=== PATIENT | male | born 1955 | race Caucasian/White ===

== ENCOUNTER 2018-04-21 07:52 | Outpatient (CLI) | payer BC ==
[2018-04-21] MEDS ORDERED: ISOVUE-370 76%-LOCM 1 ML ONE (12:12)
== END 2018-04-21 07:53 | disposition home or self-care (01) ==
LOC: BICCT 07:52
PROVIDERS: ATTEND Internal Medicine Gastroenterology
DX: K76.0 Fatty (change of) liver, not elsewhere classified (principal); R63.4 Abnormal weight loss; K30 Functional dyspepsia; K44.9 Diaphragmatic hernia without obstruction or gangrene; K57.30 Diverticulosis of large intestine without perforation or abscess without bleeding
CPT/HCPCS: 74177; 82565

== ENCOUNTER 2020-09-19 09:52 | Outpatient (CLI) | payer MEDICARE, BC ==
--- NOTE | 2020-09-19 12:37 | RAD ---
RIGHT HAND 3 VIEWS: Date: 09/19/2020 HISTORY: Thumb pain. 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 Deformity of the distal fifth metacar pal evidence for healed old fracture. Marked negative ulnar variance. IMPRESSION: Arthrosis changes trapezium first metacarpal joint. Foreshortening and deformity of the fifth metacar pal, evidence for old injury. Fairly marked negative ulnar variance. POS: RRE
--- NOTE | 2020-09-19 12:38 | RAD ---
LEFT HAND 3 VIEWS: Date: 09/19/2020 HISTORY: Thumb pain. FINDINGS: Osteoarthrosis changes involving the trapezium first metacarpal joint with some deformity of the firs t metacarpal, evidence for residual from a healed fracture. Moderate negative ulnar variance. IMPRESSION: No acute fracture or dislocation. Osteoarthrosis changes trapezium first metacarpal joint with deform ity, with old deformity of the first metacarpal. Moderate to marked negative ulnar variance. POS: RRE
== END 2020-09-19 09:53 | disposition home or self-care (01) ==
LOC: BICRAD 09:52
PROVIDERS: ATTEND Physician Assistant
DX: M79.646 Pain in unspecified finger(s) (principal); M21.831 Other specified acquired deformities of right forearm; M18.9 Osteoarthritis of first carpometacarpal joint, unspecified; Z87.828 Personal history of other (healed) physical injury and trauma

== ENCOUNTER 2020-11-13 17:37 | Emergency (ER) | payer MEDICARE, BC ==
[2020-11-13 18:28] LABS: #Eosinphils 0.1 thou/uL (0.0-0.7); #Lymphocytes 1.9 thou/uL (1.20-3.40); #Monocytes 0.5 thou/uL (0.11-0.59); #Neutrophils 8.9 thou/uL (1.40-6.50); %Eosinophils 0.7 % (0.0-10.0); %Monocytes 4.7 % (0.0-10.0); %Neutrophils 77.5 % (42.0-75.0); Hemoglobin 15.1 g/dL (14.0-18.0); Mean Corpuscular HGB CONC 33.5 g/dL (32.0-36.0); Mean Corpuscular Hemoglobin 31.7 pg (27.0-31.0); Mean Corpuscular Volume 94.6 fL (78.0-98.0); Mean Platelet Volume 8.7 fL (7.4-10.4); Platelet Count 195 thou/uL (130-400); RBC Distribution Width 11.4 % (11.5-14.5); Red Blood Cell (RBC) Count 4.77 mill/uL (4.70-6.10); White Blood Cell (WBC) Count 11.4 thou/uL (4.8-10.8)
[2020-11-13 18:52] LABS: ALT (SGPT) 19 U/L (8-55); AST (SGOT) 27 U/L (5-34); Albumin 4.1 g/dL (3.4-4.8); Alkaline Phosphatase 81 U/L (40-110); Anion Gap 15 mmol/L (10-20); BUN (Urea Nitrogen) 20 mg/dL (8.4-25.7); Bilirubin, Total 0.6 mg/dL (0.2-1.2); Calc. Creatinine Clearance 0 mL/min (70-130); Calcium 9.3 mg/dL (7.8-10.44); Carbon Dioxide 30 mmol/L (23-31); Chloride 102 mmol/L (98-107); Globulin 3.1 g/dL (2.4-3.5); Glucose 155 mg/dL (80-115); Potassium 3.8 mmol/L (3.5-5.1); Protein, Total 7.2 g/dL (5.8-8.1); Sodium 143 mmol/L (136-145)
[2020-11-13 18:56] LABS: Bilirubin Negative (Negative); Blood, Urine 1+ (Negative); Clarity Clear (Clear); Glucose, Urine (Dipstick) Normal (Negative); Ketone, Urine Negative (Negative); Leukocyte 25 Leu/uL (Negative); Nitrite Negative (Negative); Protein, Urine (Dipstick) 70 mg/dL (Neg-Trace); RBC/HPF Greater than 50 HPF (0-3); Specific Gravity, Urine 1.038 (1.002-1.036); Squamous Epithelial 0-3 HPF (0-3)
[2020-11-13 19:04] LABS: Bacteria/HPF Rare-Few HPF (None Seen)
[2020-11-13] MEDS ORDERED: Morphine 4 MG/ML VIAL ONE (19:42)
[2020-11-13] MEDS ORDERED: Ondansetron PF 4 MG/2 ML Vial ONE (19:42)
--- NOTE | 2020-11-13 21:33 | CT ---
CT Stone Protocol 11/13/2020 9:07 PM HISTORY: Right flank pain with pain rating to right lower abdomen. COMPARISON: 04/21/2018 Technique: Multiple contiguous axial CT images are obtained through the abdomen and pelvis without IV contrast. Coronal reformats are provided. FINDINGS: This examination is limited for the evaluation of solid organs and vascular structures due to the lac k of intravenous contrast. Lower Chest: Minimal dependent bibasilar atelectasis. Liver: Grossly normal non-enhanced CT appearance. Gallbladder: Within normal limits for CT imaging. Pancreas: Grossly normal nonenhanced CT appearance. Spleen: Grossly normal nonenhanced CT appearance. Adrenals: Grossly normal nonenhanced CT appearance. Kidneys and ureters: Nonobstructing bilateral renal calculi are seen. There is a single approximately 2 mm calculus superior pole left kidney with at least 3 nonobstructing right renal calculi measuring 2 to 3 mm. Minimal right hydronephrosis is present with mild right periureteral inflammator y stranding. A 3 mm calculus is seen at the right UVJ. There is minimal dilatation right ureter compared to the left. No left ureteral calculus is seen. Urinary bladder: Incompletely distended but otherwise grossly within normal limits. Reproductive Organs: Prostate gland mildly enlarged in transverse dimensions measuring 5.2 cm. Lymph Nodes: No enlarged lymph nodes. Bowel: Evidence of colonic diverticulosis. Moderate amount retained fecal material is seen throughout the colon. Loops of small bowel are normal in caliber. Appendix: Not definitely visualized. Peritoneum: No free fluid, free air, or fluid collection. Retroperitoneum: within normal limits. Vessels: Vascular calcifications present in the abdominal aorta and iliac arteries.. Abdominal Wall: within normal limits. Bones: Grade 1 anterolisthesis of L4 and L5 related to facet degenerative changes. Additional degener ative changes are seen in the lumbar spine. IMPRESSION: 1. Partially obstructing right UVJ calculus measuring 3 mm. There is minimal right hydronephrosis and hydroureter with periureteral inflammatory changes present likely due to passage of the calculus. 2. Nonobstructing bilateral renal calculi. 3. Constipation. 4. Colonic diverticulosis.
--- NOTE | 2020-11-15 18:40 | EKG ---
Test Reason : Blood Pressure : / mmHG Vent. Rate : 049 BPM Atrial Rate : 049 BPM P-R Int : 172 ms QRS Dur : 092 ms QT Int : 478 ms P-R-T Axes : 046 059 066 degrees QTc Int : 431 ms Sinus bradycardia Otherwise normal ECG Confirmed by NATO KAPOOR ([id number]), newspaper copy editor MARIA ELENA REZA ([id number]) on 11/15/2020 6:40:26 PM Referred By: Confirmed By:NATO KAPOOR
== END 2020-11-13 22:20 | disposition home or self-care (01) ==
LOC: ERS 17:37
DX: N13.2 Hydronephrosis with renal and ureteral calculous obstruction (principal); I10 Essential (primary) hypertension; Z79.82 Long term (current) use of aspirin; Z79.899 Other long term (current) drug therapy
CPT/HCPCS: 36415; 74176; 80053; 81003; 81015; 84484; 85025; 87086; 93005; 96374; 96375; J2270; J2405

== ENCOUNTER 2022-11-05 09:01 | Outpatient (CLI) | payer MEDICARE, OTHER ==
[2022-11-05] MEDS ORDERED: Iopamidol-370 76% 500 ML 1 ML ONE (14:59)
== END 2022-11-05 09:02 | disposition home or self-care (01) ==
LOC: BICCT 09:01
PROVIDERS: ATTEND Physician Assistant Medical
DX: K31.A0 Gastric intestinal metaplasia, unspecified (principal); R63.4 Abnormal weight loss; R13.10 Dysphagia, unspecified; K59.00 Constipation, unspecified; R11.10 Vomiting, unspecified; N20.0 Calculus of kidney
CPT/HCPCS: 74177; 82565

== ENCOUNTER 2023-01-17 13:53 | Outpatient (CLI) | payer MEDICARE, OTHER | END 2023-01-17 13:54 | disposition home or self-care (01) | LOC: RAD 13:53 | PROVIDERS: ATTEND Physician Assistant Medical | DX: R63.4 Abnormal weight loss (principal) | CPT/HCPCS: 71046 ==